=== PATIENT | female | born 1975 | race Caucasian/White ===

== ENCOUNTER 2022-09-14 06:51 | Day surgery (SDC) | payer BC ==
[~2022-09-14] VITALS: Ht 167.6 cm; Wt 93.6 kg
[2022-09-14 07:31] VITALS: BP 124/88; PULSE 104; TEMP 97.1
[2022-09-14] MEDS ORDERED: HONEY BEARS MU1 EACH PO (07:39)
[2022-09-14] MEDS ORDERED: PHARMASSURE ZIN50 MG PO (07:40)
[2022-09-14 08:50] VITALS: BP 111/79; PULSE 72; TEMP 97.1
[2022-09-14 09:05] VITALS: BP 118/84; PULSE 80
[2022-09-14 09:20] VITALS: BP 117/82; PULSE 72
--- NOTE | 2022-09-14 09:25 | NUR ---
0850 RETURNS TO ROOM 4 PER CART. AWAKE, ALERT. AMBULATES TO RECLINER WITH STANDBY ASSIST. RESP UNLABORED. DENIES NAUSEA OR ABD PAIN. VITAL SIGNS OBTAINED. CALL LIGHT AT SIDE. HERE. 0905 TOLERATES PO SODA AND MUFFIN WITHOUT NAUSEA 0910 DISCHARGE INSTRUCTIONS REVIEWED. PATIENT VERBALIZES UNDERSTANDING. COPY PROVIDED IN DISCHARGE FOLDER. 0914 DR. AVILA HERE TO VISIT WITH PATIENT 0920 DRESSES SELF
== END 2022-09-14 09:28 | disposition home or self-care (01) ==
LOC: SDCO 06:51
DX: Z12.11 Encounter for screening for malignant neoplasm of colon (principal)
CPT/HCPCS: J2704; J7120